=== PATIENT | female | born 1990 | race Caucasian/White ===

== ENCOUNTER → 2017-08-25 10:59 | Outpatient (CLI) | payer MEDICAID, SELFPAY ==
[2017-08-25 15:17] LABS: Absolute Lymphocyte Count 2.88 X10^3/ul (0.83-4.51); Basophil# 0.04 X10^3/uL; Basophil% 0.4 % (0-1); Eosinophil# 0.19 X10^3/uL; Eosinophils% 2.1 % (0-5); Hematocrit 39.7 % (37-47); Hemoglobin 13.4 g/dl (12.0-15.0); Lymphocyte # 2.88 X10^3/ul (4.0); Lymphocyte % 32.4 % (19-41); Mean Corp Hgb Conc 33.8 g/gl (32-36); Mean Corpuscular Hgb 31.6 pg (27.0-32.0); Mean Corpuscular Volume 93.6 fL (81-99); Mean Platelet Vol. 9.9 fl (6.2-12.0); Monocyte# 0.75 X10^3/uL; Monocyte% 8.4 % (0-10); Neutrophil # 5.02 X10^3/uL (2.7-7.7); Neutrophil % 56.6 % (47-70); Platelet Count 273 K/mm3 (150-450); RBC Distribution Width CV 12.6 % (11.6-14.6); Red Blood Count 4.24 M/mm3 (4.2-5.4); White Blood Count 8.9 K/mm3 (4.4-11.0)
[2017-08-25 15:19] LABS: POSITIVE COUNT NO; POSITIVE DIFFERENTIAL NO; POSITIVE MORPHOLOGY NO
[2017-08-25 15:27] LABS: Color, Urine Yellow (Yellow); Glucose, Dipstick Normal (Normal); Ketone-Dipstick Negative (Negative); Leukocyte Esterase-Dipstick Negative /ul (Negative); Nitrite-Dipstick Negative (Negative); Occult Blood-Urine Negative /ul (Negative); Protein-Dipstick Negative (Negative); Urine Bilirubin Dipstick Negative (Negative); Urine Clarity Sl. Cloudy (Clear); Urine Urobilinogen Normal (Normal)
[2017-08-25 15:34] LABS: Amphetamine Urine VISTA NEGATIVE (<1000 ng/mL); Barbiturate Urine VISTA NEGATIVE (< 200 ng/mL); Benzodiazepine Urine VISTA NEGATIVE (< 200 ng/mL); Cocaine Urine VISTA NEGATIVE (< 300 ng/mL); Ecstacy Urine VISTA NEGATIVE (< 500 ng/mL); Methadone Urine VISTA NEGATIVE (< 300 ng/mL); PCP Urine VISTA NEGATIVE (< 25 ng/mL); THC Urine VISTA NEGATIVE (< 50 ng/mL); Vista UDS pH Range 6
[2017-08-25 15:37] LABS: Thyroid Stim Hormone (TSH) 0.53 uIU/mL (0.358-3.74)
[2017-08-25 16:09] LABS: COTININE Drug Screen Negative (<200 ng/mL)
[2017-08-26 09:38] LABS: HIV - WCH Non-Reactive (Nonreactive); Rubella IgG 279.4 IU/mL
[2017-08-28 03:48] LABS: Prenatal RPR NONREACTIVE (NONREACTIVE)
[2017-08-28 07:19] LABS: HEPATITIS B SURFACE AG Negative (Negative); Hep C Antibodies 0.1 s/co ratio (0.0-0.9); V-Zoster IgG (Immunity) 1202 index (Immune >165)
== END ==
PROVIDERS: Visit Provider Obstetrics & Gynecology
DX: Z34.81 Encounter for supervision of other normal pregnancy, first trimester (principal)
CPT/HCPCS: 36415; 80307; 81002; 84443; 85025; 86703; 86762; 86787; 86803; 87340

== ENCOUNTER → 2018-01-14 10:59 | Outpatient (CLI) | payer MEDICAID, SELFPAY ==
[2018-01-14 12:21] LABS: Hematocrit 34.6 % (37-47); Hemoglobin 11.5 g/dl (12.0-15.0); Mean Corp Hgb Conc 33.2 g/gl (32-36); Mean Corpuscular Hgb 31.3 pg (27.0-32.0); Mean Platelet Vol. 10.4 fl (6.2-12.0); Platelet Count 201 K/mm3 (150-450); RBC Distribution Width CV 13.3 % (11.6-14.6); RBC Distribution Width SD 45.8 fl (35.1-43.9); Red Blood Count 3.68 M/mm3 (4.2-5.4)
[2018-01-14 12:23] LABS: Scan Indicated on CBC? Y/N NO
[2018-01-14 12:37] LABS: Glucose Challenge Gest 1H 50g 106 mg/dL (70-140)
== END ==
PROVIDERS: Visit Provider Obstetrics & Gynecology
DX: Z34.83 Encounter for supervision of other normal pregnancy, third trimester (principal)
CPT/HCPCS: 36415; 82950; 85027

== ENCOUNTER → 2018-03-11 15:34 | Outpatient (CLI) | payer MEDICAID, SELFPAY ==
[2018-03-11 17:34] LABS: Group B Strep DNA By PCR Negative (Negative); Internal Control PASS; Probe Check PASS; Specimen Processing Control PASS
== END ==
PROVIDERS: Visit Provider Obstetrics & Gynecology
DX: Z36.85 Encounter for antenatal screening for Streptococcus B (principal)
CPT/HCPCS: 87081; 87653

== ENCOUNTER 2018-03-31 06:50 | Inpatient (IN) | payer MEDICAID, SELFPAY ==
[2018-03-31 07:32] VITALS: BMI 30.4
[2018-03-31] MEDS: Lactated Ringers 1,000 ML 50 ML IV ×3 (07:58→15:30)
[2018-03-31] MEDS: Oxytocin 30 units/NS 500 ml 30 UNITS/500 ML IV.SOLN IV (08:03)
[2018-03-31 08:04] LABS: Hematocrit 34.4 % (37-47); Hemoglobin 11.4 g/dl (12.0-15.0); Mean Corp Hgb Conc 33.1 g/gl (32-36); Mean Corpuscular Hgb 30.2 pg (27.0-32.0); Mean Corpuscular Volume 91.2 fL (81-99); Mean Platelet Vol. 11.5 fl (6.2-12.0); Platelet Count 169 K/mm3 (150-450); RBC Distribution Width CV 13.6 % (11.6-14.6); RBC Distribution Width SD 44.5 fl (35.1-43.9); Red Blood Count 3.77 M/mm3 (4.2-5.4); Scan Indicated on CBC? Y/N NO
--- NOTE | 2018-03-31 09:30 | PCM.PN.OB ---
Subjective: Feeling some pressure. Objective: AFeb VSS. FHR tracing Cat 1 - Physical Exam General: Alert, Oriented x3, Cooperative, No apparent distress Lungs: Clear to auscultation, Normal air movement Cardiovascular: Regular rate, Regular Rhythm Abdomen: Non Tender, Gravid, Appropriate for Gestational Age Extremities: No edema, No Calf Tenderness Skin: No rashes Neurological: Neuro grossly intact Psych/Mental Status: Normal Affect Comment: CE /-2 Weight: 177 lb 11.081 oz Body Mass Index (BMI) 30.4 Intake and Output for Last 24 Hours 03/29/18 03/30/18 03/31/18 23:59 23:59 23:59 Output Total 550 / 550 Balance -550 / -550 Laboratory Tests Past 24 Hrs 03/31/18 03/31/18 07:40 07:40 WBC 9.0 RBC 3.77 L Hgb 11.4 L Hct 34.4 L MCV 91.2 MCH 30.2 MCHC 33.1 RDW 13.6 RDW Differential 44.5 H Plt Count 169 MPV 11.5 Blood Type Pending Antibody Screen Pending Medical Necessity - Tobacco Use Smoking Status: Former smoker Assessment/Plan AROM performed with clear fluid noted
[2018-03-31] MEDS: fentaNYL-bupivacaine (epidural) 100 ML BAG EPIDURAL ×2 (11:32→15:46)
--- NOTE | 2018-03-31 15:54 | NURSING ---
1540: Call to Dr Kimball. Message taken by nurse that pt SVE is 8/100/-2, and is comfortable with epidural.
--- NOTE | 2018-03-31 17:25 | PCM.PN.OB ---
Subjective: Comfortable with epidural with some pressure. Objective: AFeb VSS. FHR tracing Cat 1. - Physical Exam General: Alert, Oriented x3, Cooperative, No apparent distress Abdomen: Soft, Non Tender, Non-Distended, Gravid, Appropriate for Gestational Age Extremities: No edema Skin: No rashes Neurological: Neuro grossly intact Psych/Mental Status: Normal Affect Comment: FD +1 station Weight: 177 lb 11.081 oz Body Mass Index (BMI) 30.4 Intake and Output for Last 24 Hours 03/29/18 03/30/18 03/31/18 23:59 23:59 23:59 Intake Total 3020 / 3020 Output Total 1250 / 1250 Balance 1770 / 1770 Laboratory Tests Past 24 Hrs 03/31/18 03/31/18 07:40 07:40 WBC 9.0 RBC 3.77 L Hgb 11.4 L Hct 34.4 L MCV 91.2 MCH 30.2 MCHC 33.1 RDW 13.6 RDW Differential 44.5 H Plt Count 169 MPV 11.5 Blood Type O POSITIVE Antibody Screen NEGATIVE Medical Necessity - Tobacco Use Smoking Status: Former smoker Assessment/Plan Has progressed in labor. Now ready to start pushing efforts. Expect .
--- NOTE | 2018-03-31 17:33 | DCINST_ITS ---
Discharge Diet: No Restrictions Discharge Activity: Return to Normal Activity, May Drive, May Shower Return to work on:: 05/31/18 May shower in (days): 0 May resume sexual activity in: 4-6 weeks Call your doctor if your incision/area has: Sudden Increased Bleeding, Increased Pain/ Swelling, Foul Smelling Discharge Call your doctor if you observe: Fever of 101 or Higher, Inability to urinate, Inability to have a bowel movement, Using more than one pad per hour, Shortness of breath, Chest pain, Calf discomfort, Uncontrolled pain Cleanse incision/area with: Soap & Water Additional Instructions: If you experience any of the following, contact your healthcare provider. * Bleeding that soaks a pad every hour for 2 hours * Fever 100.4 or higher * Unrelieved incision or abdominal pain * Swelling, redness, discharge or bleeding from your incision or episiotomy site * Your incision begins to separate * Problems urinating (including inability to urinate or burning while urinating) . * Visual changes * Severe headache * Flu-like symptoms * Pain or redness in one of both of your breasts * Pain, warmth, tenderness or swelling in your legs, especially the calf area * Frequent nausea and vomiting * Symptoms of depression or anxiety If you experience any of the following, call 911 or go to the nearest Emergency Room. * Chest pain * Problems breathing * Seizure activity * Partial or complete paralysis of a body part, slurred speech, weakness or drooping of the face, or a sudden inability to walk or hold your balance Allergies/Adverse Reactions: Allergies amoxicillin [Amoxicillin] Allergy (Verified 08/09/13 02:46) Unknown amoxicillin trihydrate [From Trimox] Allergy (Verified 08/09/13 02:46) Rash azithromycin [From Zithromax] Allergy (Verified 08/09/13 02:46) Unknown erythromycin base [Erythromycin Base] Allergy (Verified 08/09/13 02:46) Unknown lactose Allergy (Verified 08/09/13 02:46) Abd cramps/diarrhea metronidazole Allergy (Verified 08/09/13 02:46) Other Penicillins [PCN] Allergy (Verified 08/09/13 02:46) Vomiting Sulfa (Sulfonamide Antibiotics) Allergy (Verified 08/09/13 02:46) Vomiting vancomycin Allergy (Verified 08/10/13 19:32) Hives Medications to take at Discharge Ibuprofen 600 mg PO 4X/DAY #30 tab 03/31/18 Pantoprazole Sodium [Protonix] 40 mg PO DAILY 03/31/18 Vits [Prenatabs FA ] 1 tablet PO DAILY 03/31/18 The following prescriptions were given: Ibuprofen 600 mg PO 4X/DAY #30 tab Please Follow Up With: Saurabh Kimball MD When: 6 weeks Primary Care Physician: Samara Ring, RN [Primary Care Provider] - Test Results: Test results from this visit will be discussed in further detail at your follow- up appointment, if applicable. Proposed Discharge Date: 04/02/18
[2018-03-31] MEDS: Ondansetron 4 MG/2 ML Vial IV (18:07)
[2018-03-31] MEDS: Oxytocin 30 units/NS 500 ml 30 UNITS/500 ML IV.SOLN 334 UNITS IV (18:49)
--- NOTE | 2018-03-31 19:02 | PCM.OB.VAG ---
Vaginal Delivery Maternal Presentation: Spontaneous Rupture of Membranes 39 weeks EGA admitted for elective induction of labor Method of Induction: Pitocin Amniotic Membrane Rupture Type: Artificial Rupture of Membrane time: 929 Amniotic Fluid Description: Clear Final JESUS: 04/07/18 Final JESUS Source: US <20 weeks Gestational age: 39 Weeks and 0 Days Date of Procedure: 03/31/18 Pre-Operative Diagnosis: Labor Post-Operative Diagnosis: same Surgery/ Procedure Performed: Vacuum Assisted Vaginal Delivery Anesthesiologist: Aden Haney Type of Anesthesia: Epidural Description of Procedure: Sarah progressed to FD then pushed for about an hour with little descent below +2 station. Noted to have a narrow pubic arch. Decision made to assist with a Kiwi vacuum device. The device was placed with care to avoid the fontanelles. Using steady downward traction the head was delivered under the pubic bone then the device was removed. She then pushed during the next contraction to deliver a live male with apgars of 8/9. Delayed cord clamping was employed. Cord blood was collected for blood typing. The placenta delivered spontaneously intact with a centrally located 3VC. The uterus contracted well. The cervix and upper vagina were intact. A small posterior vaginal first degree tear was repaired with 2-0 vicryl. A left first degree labial tear was repaired with 3-0 vicryl. Presentation: Vertex Placental Delivery Description: Spontaneous Placenta Disposition: [facility] Percentage of Placenta Abruption: 0 Cord Vessel Description: 3 Vessels Nuchal Cord Compression: Without compression Cord Entanglement: None Drain: Zhou to straight drain Estimated Blood Loss: 300cc A gender: Male (1 minute): 8 (5 minute): 9 Episiotomy Description: None Laceration: Midline, Vaginal Extension/lac, 1st degree Medications given after delivery: IV Pitocin Complications: None
[2018-03-31] MEDS: Oxytocin 30 units/NS 500 ml 30 UNITS/500 ML IV.SOLN 167 UNITS IV (20:16)
--- NOTE | 2018-03-31 22:51 | NURSING ---
epidural catheter removed and blue tip intact
[2018-03-31] MEDS: Ibuprofen 600 MG Tablet PO (23:46)
[2018-04-01] VITALS (7 sets, daily range): BP systolic 110–129; BP diastolic 64–84; PULSE 72–94; RESP 16–20; TEMP 36.2–36.8; O2SAT 97
[2018-04-01 06:01] LABS: Hematocrit 33.3 % (37-47); Hemoglobin 11.2 g/dl (12.0-15.0); Mean Corp Hgb Conc 33.6 g/gl (32-36); Mean Corpuscular Hgb 30.9 pg (27.0-32.0); Mean Platelet Vol. 11.9 fl (6.2-12.0); Platelet Count 179 K/mm3 (150-450); RBC Distribution Width CV 13.4 % (11.6-14.6); RBC Distribution Width SD 43.6 fl (35.1-43.9); Red Blood Count 3.62 M/mm3 (4.2-5.4); White Blood Count 14.3 K/mm3 (4.4-11.0)
[2018-04-01 06:05] LABS: Scan Indicated on CBC? Y/N NO
[2018-04-01] MEDS: Ibuprofen 600 MG Tablet PO ×3 (07:48→23:23)
--- NOTE | 2018-04-01 07:48 | PCM.PN.OB ---
Subjective: Some cramping with breast feeding. Bleeding light. Objective: AFeb VSS Hgb stable - Physical Exam General: Alert, Oriented x3, Cooperative, No apparent distress Lungs: Clear to auscultation, Normal air movement Cardiovascular: Regular rate, Regular Rhythm Abdomen: Soft, Non Tender, Non-Distended, - - Fundus firm nontender Extremities: No edema, No Calf Tenderness Skin: No rashes Neurological: Neuro grossly intact Psych/Mental Status: Normal Affect Comment: Lochia light Vital Signs Temp Pulse Resp BP 97.7 F L 74 20 H 121/83 H 04/01/18 07:32 04/01/18 07:37 04/01/18 07:32 04/01/18 07:32 Weight: 177 lb 11.081 oz Body Mass Index (BMI) 30.4 Intake and Output for Last 24 Hours 03/30/18 03/31/18 04/01/18 23:59 23:59 23:59 Intake Total 3020 / 3020 Output Total 2650 / 2650 1000 / 1000 Balance 370 / 370 -1000 / -1000 Laboratory Tests Past 24 Hrs 03/31/18 03/31/18 04/01/18 07:40 07:40 05:30 WBC 9.0 14.3 H RBC 3.77 L 3.62 L Hgb 11.4 L 11.2 L Hct 34.4 L 33.3 L MCV 91.2 92.0 MCH 30.2 30.9 MCHC 33.1 33.6 RDW 13.6 13.4 RDW Differential 44.5 H 43.6 Plt Count 169 179 MPV 11.5 11.9 Blood Type O POSITIVE Antibody Screen NEGATIVE Medical Necessity - Tobacco Use Smoking Status: Former smoker Assessment/Plan Doing well on PP day#2. Continue routine PP care.
--- NOTE | 2018-04-01 07:50 | PCM.DC.SUM ---
Discharge Date and Diagnosis Date of Admission: 03/31/18 Date of Discharge: 04/02/18 - Primary Discharge Diagnosis S/P Vacuum Assisted vaginal delivery Hospital Course and Treatment Consultations 03/31/18 06:58 Consult: Anesthesia Routine Comment: Reason For Exam: ROUTINE Operations: None Procedures: - - Pitocin induction of labor, epidural, vacuum assisted vaginal delivery Summary of Care Provided: The patient is a 28 year old F [admitted for elective induction of labor at 39 weeks. Pitocin induction resulted in vacuum assisted vaginal delivery without complication. Post course unremarkable. Discharged home on PP day#2.] Discharge Diet: No Restrictions Discharge Activity: Return to Normal Activity, May Drive, May Shower Return to work on:: 05/31/18 May shower in (days): 0 May resume sexual activity in: 4-6 weeks Call your doctor if your incision/area has: Sudden Increased Bleeding, Increased Pain/ Swelling, Foul Smelling Discharge Call your doctor if you observe: Fever of 101 or Higher, Inability to urinate, Inability to have a bowel movement, Using more than one pad per hour, Shortness of breath, Chest pain, Calf discomfort, Uncontrolled pain Cleanse incision/area with: Soap & Water Home Medications: Medications to take at Discharge Ibuprofen 600 mg PO 4X/DAY #30 tab 03/31/18 Pantoprazole Sodium [Protonix] 40 mg PO DAILY 03/31/18 Vits [Prenatabs FA ] 1 tablet PO DAILY 03/31/18 Following Prescrptions Were Given to Patient: Ibuprofen 600 mg PO 4X/DAY #30 tab Primary Care Physician: Samara Ring RN [Primary Care Provider] - Please Follow Up With: Saurabh Kimball MD When: 6 weeks Disposition: Home Minutes spent on discharge:: 15 Patient Condition:: Good Medical Necessity - Tobacco Use Smoking Status: Former smoker Meaningful Use Info Meaningful Use Diagnoses (Choose all that apply): None applicable
--- NOTE | 2018-04-01 07:55 | NURSING ---
did tyhe assessment with the student and helped her document. agree with the documented assessment
--- NOTE | 2018-04-01 08:43 | NURSING ---
gave report to ivette
[2018-04-01] MEDS: Pantoprazole Sodium 40 MG Tablet PO (09:40)
[2018-04-01] MEDS: Prenatal Vits Tablet 1 TABLET PO (09:40)
--- NOTE | 2018-04-01 10:07 | NURSING ---
report given to Sabrina
[2018-04-01] MEDS: Acetaminophen 500 MG Tablet 1000 MG PO (11:14)
--- NOTE | 2018-04-01 13:05 | NURSING ---
report given to ivette
[2018-04-01] MEDS: Dibucaine 30 GM Tube 1 APPLIC TOPICAL (13:14)
[2018-04-01] MEDS: oxyCODONE 5 MG Tablet PO (18:08)
[2018-04-02 01:00] VITALS: BP 126/71; PULSE 77; RESP 16; TEMP 36.3; O2SAT 98
[2018-04-02] MEDS: oxyCODONE 5 MG Tablet PO ×2 (01:15→08:35)
--- NOTE | 2018-04-02 08:10 | PCM.PROGNOTE ---
Subjective: PPD#2 Vacuum assisted vaginal delivery Nursing, milk not quite in. States baby up all night cluster feeding. C/O severe pain at perineum 2/2 stitches (first degree) Used cream but not helpful Will offer Dermoplast if available at this hospital, otherwise mother to go to [facility] to pick this up. Baby appt needed, so stayed last night 2/2 no f/u appt with peds yet. States poor sleep . States needing Oxycodone for her perineum. Objective: Sitting up in bed, holding and nursing baby. - Physical Exam General: Alert, Oriented x3, Cooperative, No apparent distress HEENT: Atraumatic Neck: Supple Neurological: Cranial nerves II-XII grossly intact Psych/Mental Status: Normal Affect Vital Signs Temp Pulse Resp BP Pulse Ox 97.4 F L 77 16 126/71 H 98 04/02/18 01:00 04/02/18 01:00 04/02/18 01:00 04/02/18 01:00 04/02/18 01:00 Oxygen Delivery Method Room Air Weight: 80.6 kg Body Mass Index (BMI) 30.4 Intake and Output for Last 24 Hours 03/31/18 04/01/18 04/02/18 23:59 23:59 23:59 Intake Total 3020 / 3020 Output Total 2650 / 2650 1000 / 1000 Balance 370 / 370 -1000 / -1000 Medical Necessity - Tobacco Use Smoking Status: Former smoker Assessment/Plan PPD#2 Vacuum assisted vaginal delivery Stable pp . Dischg home. Peds appt to be made today prior to dischg. RTO to see Dr. Kimball in 6 wk for pp check, prn sooner.
[2018-04-02] MEDS: Prenatal Vits Tablet 1 TABLET PO (08:34)
[2018-04-02 08:35] VITALS: BP 128/78; PULSE 76; RESP 16; TEMP 36.2
[2018-04-02] MEDS: Senna/Docusate Sodium 1 Tablet PO (08:35)
[2018-04-02] MEDS: Pantoprazole Sodium 40 MG Tablet PO (08:35)
[2018-04-02] MEDS: Naproxen 250 MG Tablet PO (13:03)
[2018-04-02 13:50] VITALS: BP 123/70; PULSE 84; RESP 16; TEMP 36.6
== END 2018-04-02 13:50 | disposition home or self-care (01) | DRG 373 ==
PROVIDERS: Admitting Provider Obstetrics & Gynecology; Visit Provider Obstetrics & Gynecology
DX: O34.83 Maternal care for other abnormalities of pelvic organs, third trimester (principal); O70.0 First degree perineal laceration during delivery; O26.23 Pregnancy care for patient with recurrent pregnancy loss, third trimester; O99.89 Other specified diseases and conditions complicating pregnancy, childbirth and the puerperium; Q76.0 Spina bifida occulta; Z87.891 Personal history of nicotine dependence; Z3A.39 39 weeks gestation of pregnancy; Z37.0 Single live birth
CPT/HCPCS: 59025; 59050; 85027; 86850; 86900; 99218; J7120; G0378; J2405

== ENCOUNTER → 2018-09-14 13:24 | Outpatient (CLI) | payer MEDICAID, SELFPAY ==
[2018-09-15 17:16] LABS: HPV Reflexed? NOT INDICATED
== END ==
PROVIDERS: Visit Provider Obstetrics & Gynecology
DX: Z12.4 Encounter for screening for malignant neoplasm of cervix (principal)
CPT/HCPCS: 88175; G0145

== ENCOUNTER → 2019-03-28 12:05 | Outpatient (CLI) | payer BC, MEDICAID, SELFPAY ==
[2019-03-28 13:18] LABS: Progesterone Level 16.95 ng/mL (See Comment)
[2019-03-28 13:50] LABS: hCG Titer Quant., Serum 1577 mIU/mL (1-3)
== END ==
PROVIDERS: Visit Provider Obstetrics & Gynecology
DX: N91.2 Amenorrhea, unspecified (principal)
CPT/HCPCS: 36415; 84144; 84702

== ENCOUNTER → 2019-04-19 15:32 | Outpatient (CLI) | payer BC, MEDICAID, SELFPAY ==
[2019-04-19 19:57] LABS: Chlamydia Trachomatis by PCR Negative (Negative); Neisserai gonorrhoeae by PCR Negative (Negative); Probe Check PASS; Sample Adequacy Control PASS; Specimen Processing Control PASS
== END ==
PROVIDERS: Visit Provider Obstetrics & Gynecology
DX: Z34.81 Encounter for supervision of other normal pregnancy, first trimester (principal)
CPT/HCPCS: 87491; 87591

== ENCOUNTER → 2019-05-18 10:35 | Outpatient (CLI) | payer BC, MEDICAID, SELFPAY ==
[2019-05-18 14:18] LABS: Absolute Lymphocyte Count 2.36 X10^3/uL (0.83-4.51); Absolute Neutrophil Count 5.8 X10^3/uL (2.0-7.7); Basophil# 0.04 X10^3/uL; Basophil% 0.4 % (0-1); Eosinophil# 0.28 X10^3/uL; Eosinophils% 3.1 % (0-5); Hematocrit 38.8 % (37-47); Hemoglobin 13.3 g/dL (12.0-15.0); Lymphocyte # 2.36 X10^3/ul (4.0); Lymphocyte % 25.8 % (19-41); Mean Corp Hgb Conc 34.3 g/dL (32-36); Mean Corpuscular Hgb 31.2 pg (27.0-32.0); Mean Corpuscular Volume 91.1 fL (81-99); Mean Platelet Vol. 9.7 fl (6.2-12.0); Monocyte# 0.68 X10^3/uL; Monocyte% 7.4 % (0-10); NRBC Flagged by Analyzer 0 % (0-5); Neutrophil # 5.75 X10^3/uL (2.7-7.7); Neutrophil % 63.1 % (47-70); Platelet Count 299 K/mm3 (150-450); RBC Distribution Width SD 40.1 fl (35.1-43.9); Red Blood Count 4.26 M/mm3 (4.2-5.4); White Blood Count 9.1 K/mm3 (4.4-11.0)
[2019-05-18 14:20] LABS: Color, Urine Yellow (Yellow); Glucose, Dipstick Normal (Normal); Ketone-Dipstick Negative (Negative); Leukocyte Esterase-Dipstick Negative /ul (Negative); Nitrite-Dipstick Negative (Negative); Occult Blood-Urine Negative /ul (Negative); Protein-Dipstick Negative (Negative); Urine Bilirubin Dipstick Negative (Negative); Urine Clarity Sl. Cloudy (Clear); Urine Urobilinogen Normal (Normal); Urine pH 6.5 (5.0 - 8.0)
[2019-05-18 14:35] LABS: Thyroid Stim Hormone (TSH) 0.27 uIU/mL (0.358-3.74)
[2019-05-18 14:45] LABS: Amphetamine Urine VISTA NEGATIVE (<1000 ng/mL); Barbiturate Urine VISTA NEGATIVE (< 200 ng/mL); Benzodiazepine Urine VISTA NEGATIVE (< 200 ng/mL); Cocaine Urine VISTA NEGATIVE (< 300 ng/mL); Ecstacy Urine VISTA NEGATIVE (< 500 ng/mL); Methadone Urine VISTA NEGATIVE (< 300 ng/mL); PCP Urine VISTA NEGATIVE (< 25 ng/mL); THC Urine VISTA NEGATIVE (< 50 ng/mL); Vista UDS pH Range 6
[2019-05-19 03:07] LABS: Prenatal RPR NONREACTIVE (NONREACTIVE)
[2019-05-19 11:39] LABS: HIV - WCH Non-Reactive (Nonreactive); Hepatitis B Surface Antigen Non-Reactive (Nonreactive); Hepatitis C Antibody Non-Reactive (Nonreactive); Rubella IgG 297.7 IU/mL; Vitamin D,25 Hydroxy 21.7 ng/mL (29.95-100.01)
== END ==
PROVIDERS: Visit Provider Obstetrics & Gynecology
DX: Z34.81 Encounter for supervision of other normal pregnancy, first trimester (principal)
CPT/HCPCS: 36415; 80307; 81002; 82306; 84443; 85025; 86703; 86762; 86803; 87340

== ENCOUNTER → 2019-09-01 11:53 | Outpatient (CLI) | payer BC, MEDICAID, SELFPAY ==
[2019-09-01 12:36] LABS: Hematocrit 35.4 % (37-47); Hemoglobin 11.8 g/dL (12.0-15.0); Mean Corp Hgb Conc 33.3 g/dL (32-36); Mean Corpuscular Hgb 31.1 pg (27.0-32.0); Mean Corpuscular Volume 93.2 fL (81-99); Mean Platelet Vol. 10.1 fl (6.2-12.0); Platelet Count 228 K/mm3 (150-450); RBC Distribution Width SD 44.3 fl (35.1-43.9); White Blood Count 9.4 K/mm3 (4.4-11.0)
[2019-09-01 13:22] LABS: Free T3 2.3 pg/mL (2.18-3.98); Glucose Challenge Gest 1H 50g 95 mg/dL (70-140); T4 Free Direct 0.89 ng/dL (0.76-1.46); Vitamin D,25 Hydroxy 32.4 ng/mL (29.95-100.01)
== END ==
PROVIDERS: Visit Provider Obstetrics & Gynecology
DX: Z34.83 Encounter for supervision of other normal pregnancy, third trimester (principal)
CPT/HCPCS: 36415; 82306; 82950; 84439; 84443; 84481; 85027

== ENCOUNTER → 2019-11-01 | Outpatient (CLI) | payer BC, MEDICAID, SELFPAY | END | disposition home or self-care (01) | PROVIDERS: Referring Provider Obstetrics & Gynecology; Visit Provider Obstetrics & Gynecology | DX: Z36.85 Encounter for antenatal screening for Streptococcus B (principal) | CPT/HCPCS: 87081 ==

== ENCOUNTER 2019-11-20 15:16 | Inpatient (IN) | payer BC, MEDICAID, SELFPAY ==
[2019-11-20] VITALS (53 sets, daily range): BP systolic 121–140; BP diastolic 60–100; PULSE 76–109; TEMP 36–36.8; O2SAT 97–100; BMI 32.5
[2019-11-20] MEDS: Lactated Ringers 1,000 ML 200 ML IV ×2 (16:17→20:35)
[2019-11-20 16:20] LABS: Absolute Lymphocyte Count 2.64 X10^3/uL (0.83-4.51); Absolute Neutrophil Count 9.2 X10^3/uL (2.0-7.7); Basophil# 0.04 X10^3/uL; Basophil% 0.3 % (0-1); Eosinophils% 0.8 % (0-5); Hematocrit 35.3 % (37-47); Hemoglobin 11.6 g/dL (12.0-15.0); Lymphocyte # 2.64 X10^3/ul (4.0); Lymphocyte % 20.2 % (19-41); Mean Corp Hgb Conc 32.9 g/dL (32-36); Mean Corpuscular Hgb 29.7 pg (27.0-32.0); Mean Corpuscular Volume 90.5 fL (81-99); Mean Platelet Vol. 11.3 fl (6.2-12.0); Monocyte# 0.99 X10^3/uL; Monocyte% 7.6 % (0-10); NRBC Flagged by Analyzer 0 % (0-5); Neutrophil % 70.6 % (47-70); Platelet Count 183 K/mm3 (150-450); RBC Distribution Width CV 13.4 % (11.6-14.6); RBC Distribution Width SD 43.9 fl (35.1-43.9)
[2019-11-20] MEDS: Lactated Ringers 500 ML 999 ML IV (16:52)
--- NOTE | 2019-11-20 17:09 | PCM.HP.OB ---
- Problem List (1) 39 weeks gestation of Status: Acute History Date of Admission: 11/20/19 Final JESUS: 11/23/19 Final JESUS Source: US <20 weeks Gestational age: 39 Weeks and 4 Days History of this : This is a 29 year-old, G [6], P [2031], at 39 4/7 weeks gestational age with c/o contractions. Medical History: Medical History (Last Updated 11/20/19 @ 17:[address] Meenu Richardson MD) Family history of malignant hyperthermia Z84.89 Occult spina bifida Q76.0 Allergies amoxicillin [Amoxicillin] Allergy (Verified 08/09/13 02:46) Unknown amoxicillin trihydrate [From Trimox] Allergy (Verified 08/09/13 02:46) Rash azithromycin [From Zithromax] Allergy (Verified 08/09/13 02:46) Unknown erythromycin base [Erythromycin Base] Allergy (Verified 08/09/13 02:46) Unknown lactose Allergy (Verified 08/09/13 02:46) Abd cramps/diarrhea metronidazole Allergy (Verified 08/09/13 02:46) Other Penicillins [PCN] Allergy (Verified 08/09/13 02:46) Vomiting Sulfa (Sulfonamide Antibiotics) Allergy (Verified 08/09/13 02:46) Vomiting vancomycin Allergy (Verified 08/10/13 19:32) Hives Home Medications: Home Medications Pantoprazole Sodium [Protonix] 40 mg PO DAILY 03/31/18 Vits [Prenatabs FA ] 1 tablet PO DAILY 03/31/18 Cetirizine HCl [Zyrtec] 10 mg PO DAILY PRN 11/20/19 Smoking Status: Former smoker Alcohol: None Number of Fetus(es): 1 NST - FHR Rate Baby A Baseline: 135 Accelerations:: 15 x 15 Decelerations:: None NST Reactive:: Yes FHR Category:: Category I Uterine Activity:: 2-3/10 min History Past Pregnancies: Past Pregnancies Delivery Date Name GA/ Weeks Outcome Route Wt Sex Labor Length Anesthesia Delivery Location Provider FOB 07/2013 Jihan 38 Living [id number] F 36 Epidural [facility] 10/2015 [facility] 02/2017 [facility] 05/2017 [facility] 03/2018 Jose 39 Living VAVD [id number] M 12 Epidural [facility] Labs: Mom's Problem List Problem Status Onset Code 39 weeks gestation of Acute Z3A.39 Mom's Labs & Results 11/20/19 11/20/19 16:10 16:10 WBC 13.0 H RBC 3.90 L Hgb 11.6 L Hct 35.3 L MCV 90.5 MCH 29.7 MCHC 32.9 RDW Std Deviation 43.9 RDW Coeff of Kaitlynn 13.4 Plt Count 183 MPV 11.3 Immature Gran % (Auto) 0.500 Neut % (Auto) 70.6 H Lymph % (Auto) 20.2 Kern % (Auto) 7.6 Eos % (Auto) 0.8 Baso % (Auto) 0.3 Absolute Neuts (auto) 9.2 H Absolute Lymphs (auto) 2.64 Nucleated RBC % 0 Blood Type Pending Antibody Screen Pending Course Did the patient receive Yes care? Labs Blood Type: O RH: POSITIVE RPR/VDRL/Syphilis Nonreactive Rubella status Immune HbSAg Negative Date Done: 05/18/19 Chlamydia Negative Gonorrhea Negative HIV/AIDS Non-Reactive Group B Strep: Negative Current Obstetrical History Gestational Diabetes No Incompetent Cervix No Infertility No IUGR No Macrosomia No Hypertension/Pre-eclampsia No Placenta Previa/Abruption No PTL/PROM No Uterine anomaly No Oligohydramnios No Polyhydramnios No Multiple gestation No Past Medical History Asthma No Diabetes No Hypertension No Heart disease No Mitral valve prolapse No Neurologic/Seizure disorder/ No Migraines Kidney disease No Liver disease No Varicosities No Clotting disorders/Hx of DVT No Thyroid Dysfunction No Other medical diseases No Psychiatric disorders No Major trauma No Abnormal PAP smear Yes: 7 yrs ago hpv Sleep apnea No Mammogram in the last 2 years No Social History Marital Status: Alleged father Steven Hx Smoking No Smoking Status Former smoker, quit 2016 How long have you used no substances (years)? What date/time did you last no use any of the above? Expected Infant Delivery Method: Spontaneous Vaginal Number of Visits: 12 Review of Systems Constitutional: Denies: Chills, Fever, Fatigue Cardiovascular: Denies: Chest Pain Respiratory: Denies: Shortness of Breath Gastrointestinal: Denies: Abdominal Pain, Diarrhea, Nausea, Vomiting Gynecological: Denies: Vaginal bleeding Physical Exam Vitals: Vital Signs Temp Pulse BP Pulse Ox 98.2 F 94 124/73 H 99 11/20/19 16:51 11/20/19 17:00 11/20/19 16:51 11/20/19 17:00 General: Alert, Oriented x3, Cooperative, No apparent distress HEENT: Atraumatic, Normocephalic Cardiovascular: Regular rate, Regular Rhythm Lungs: Clear to auscultation, Normal air movement Abdomen: Soft, Non Tender, Non-Distended, Gravid Extremities:: No edema Neurological: Neuro grossly intact CRISIS INTERVENTION COUNSELOR: Normal external genitalia Estimated gestational size: Appropriate for gestational size Presentation: Cephalic Assessment/Plan All Active Problems (Last Updated 11/20/19 @ 17:[address] Meenu Richardson MD) 39 weeks gestation of (Acute) This is a 29 year-old, G [6], P [2031], at 39 4/7 weeks gestational age in labor, Cat I FHR -Epidural per patient request -Maternal and status reassuring. Essential Procedure Criteria Procedure Essential: Yes Criteria Note: On 10/04/2019 the [place] Department of Health ([facility]) Public Order signed by [facility] Director Brittani Gonzalez M.D., regarding the Management of Non-Essential Surgeries and Procedures for the purpose of preserving Personal Protective Equipment (PPE) and critical hospital capacity and resources within [place] went into effect as of 10/05/2019 at 5:00PM. According to the [facility] Public Order: This action will remain in full force and effect until the State of Emergency declared by the Governor no longer exists or the Director of the [facility] rescinds or modifies this Order.. This [facility] order stated all non-essential or elective surgeries and procedures that utilize PPE should be delayed unless there is undue risk to the current or future health of a patient. After reviewing the aforementioned [facility] Public Order and the patients clinical case, I have determined that the scheduled procedure meets the criteria to go forward. Risk to Patient if Procedure Delayed: Threat to patient's life if surgery or procedure is delayed
[2019-11-20] MEDS: fentaNYL-bupivacaine (epidural) 100 ML BAG EPIDURAL (17:46)
[2019-11-20] MEDS: Oxytocin 30 units/NS 500 ml 30 UNITS/500 ML IV.SOLN IV (20:36)
[2019-11-20] MEDS: Oxytocin 30 units/NS 500 ml 30 UNITS/500 ML IV.SOLN 334 UNITS IV (21:13)
--- NOTE | 2019-11-20 21:34 | PCM.OPRPT ---
Problem List (1) 39 weeks gestation of Status: Acute Vaginal Delivery Maternal Presentation: Active Labor Amniotomy and pitocin for augmentation Amniotic Membrane Rupture Type: Artificial Rupture of Membrane time: 11/20/19 1833h Amniotic Fluid Description: - - Blood tinged Final JESUS: 11/23/19 Final JESUS Source: US <20 weeks Gestational age: 39 Weeks and 4 Days Date of Procedure: 11/20/19 Pre-Operative Diagnosis: 39 4/7wga Post-Operative Diagnosis: 39 4/7wga Surgery/ Procedure Performed: Spontaneous Vaginal Delivery Anesthesiologist: Palak Harris Type of Anesthesia: Epidural Description of Procedure: Patient was FD/+1 station on my arrival and OA. She pushed to deliver a male infant over an intact perineum. The was placed on the maternal abdomen and further attended by nursery personnel. The cord was doubly cut and clamped at 3 minutes of life. Cord blood specimen was obtained. The placenta delivered spontaneously and appeared intact on inspection. Sponge counts correct x 2 Presentation: Vertex Placental Delivery Description: Spontaneous Placenta Disposition: [facility] Cord Vessel Description: 3 Vessels Cord Entanglement: None Drain: Zhou to straight drain Estimated Blood Loss: 150 ml Infant A gender: Male (1 minute): 9 (5 minute): 9 Episiotomy Description: None Laceration: None Medications given after delivery: IV Pitocin Complications: None
[2019-11-20] MEDS: 0.9% Saline Lock 10 ML Syringe IV (23:49)
[2019-11-21] VITALS (9 sets, daily range): BP systolic 121–134; BP diastolic 66–77; PULSE 84–99; RESP 16; TEMP 36.2–37.2; O2SAT 97
[2019-11-21] MEDS: Acetaminophen 325 MG Tablet PO ×2 (07:19→16:25)
--- NOTE | 2019-11-21 08:19 | PN.OBGYN_ITS ---
Patient Problems: Active and Suspected Problems (Last Updated 11/20/19 @ 17:[address] Meenu Richardson MD) 39 weeks gestation of (Acute) Subjective: No issues overnight. Denies heavy lochia. Has cramping, but it is tolerable. Infant nursing well. Objective: AVSS - Physical Exam Vitals/I&O's: Vital Signs Temp Pulse Resp BP Pulse Ox 97.5 F L 89 16 122/66 H 98 11/21/19 07:22 11/21/19 07:22 11/21/19 07:22 11/21/19 07:22 11/20/19 22:19 Oxygen Delivery Method Room Air Weight: 86 kg Body Mass Index (BMI) 32.5 Intake and Output for Last 24 Hours 11/19/19 11/20/19 11/21/19 23:59 23:59 23:59 Intake Total 2494.46 / 2494.46 Output Total 500 / 500 850 / 850 Balance 1993.46 / 1993.46 -850 / -850 General: Alert, Oriented x3, Cooperative, No apparent distress HEENT: Atraumatic, Normocephalic Lungs: Clear to auscultation, Normal air movement Cardiovascular: Regular rate, Regular Rhythm, Normal S1, Normal S2 Abdomen: Soft, Non Tender, Non-Distended, - - Fundus firm and nontender Extremities: No edema, No Calf Tenderness Neurological: Neuro grossly intact Psych/Mental Status: Normal Affect, Appropriate, Alert and oriented to time, place, person, mood and affect Laboratory Results 11/20/19 16:10: WBC 13.0 H, RBC 3.90 L, Hgb 11.6 L, Hct 35.3 L, MCV 90.5, MCH 29.7, MCHC 32.9, RDW Std Deviation 43.9, RDW Coeff of Kaitlynn 13.4, Plt Count 183, MPV 11.3, Immature Gran % (Auto) 0.500, Neut % (Auto) 70.6 H, Lymph % (Auto) 20.2, Pepin % (Auto) 7.6, Eos % (Auto) 0.8, Baso % (Auto) 0.3, Absolute Neuts (auto) 9.2 H, Absolute Lymphs (auto) 2.64, Nucleated RBC % 0 11/20/19 16:10: Blood Type O POSITIVE, Antibody Screen NEGATIVE Current Medications Acetaminophen (Tylenol) 325 - 650 mg PO Q4H PRN PRN PRN Reason: Pain Score 1-3/10 Last Admin: 11/21/19 07:19 Dose: 650 mg Documented by: Bisacodyl (Dulcolax) 10 mg RECTAL UD PRN PRN Reason: If no BM Dibucaine (Dibucaine) 1 applic TOPICAL TID PRN PRN; Protocol PRN Reason: Discomfort Hydrocortisone (Hytone) 1 applic TOPICAL TID PRN PRN; Protocol PRN Reason: Discomfort Ibuprofen (Motrin) 600 mg PO Q6H PRN PRN PRN Reason: Pain Score 1-3/10 Loratadine (Claritin) 10 mg PO DAILY PRN PRN Reason: ALLERGIES Methylergonovine Maleate (Methergine) 0.2 mg IM X1 PRN PRN Reason: Excess bleeding/uterine atony Ondansetron HCl (Zofran) 4 mg IV Q4H PRN PRN PRN Reason: NAUSEA Multivit/Folic Acid/Iron (Prenatabs Fa) 1 tablet PO DAILY CRIS Senna/Docusate Sodium (Senokot-S, Magalie-Colace) 1 - 2 tablet PO DAILY PRN PRN PRN Reason: Constipation Simethicone (Mylicon) 80 mg PO PCHS PRN PRN Reason: Indigestion/Stomach pain Sodium Chloride () 5 - 15 ml IV UD PRN PRN Reason: SALINE FLUSH Last Admin: 11/20/19 23:49 Dose: 10 ml Documented by: Medical Necessity - Tobacco Use Smoking Status: Former smoker Assessment/Plan All Active Problems (Last Updated 11/20/19 @ 17:[address] Meenu Richardson MD) 39 weeks gestation of (Acute) This is a 29 year-old, G [6], P [5831 PPD#1 s/p -O positive - -Routine care -Consider d/c home at 24h
--- NOTE | 2019-11-21 08:24 | DCINST_ITS ---
Discharge Diet: No Restrictions Discharge Activity: Return to Normal Activity May resume sexual activity in: 4-6 weeks Additional Instructions: If you experience any of the following, contact your healthcare provider. * Bleeding that soaks a pad every hour for 2 hours * Fever 100.4 or higher * Unrelieved incision or abdominal pain * Swelling, redness, discharge or bleeding from your incision or episiotomy site * Your incision begins to separate * Problems urinating (including inability to urinate or burning while urinating). * Visual changes * Severe headache * Flu-like symptoms * Pain or redness in one of both of your breasts * Pain, warmth, tenderness or swelling in your legs, especially the calf area * Frequent nausea and vomiting * Symptoms of depression or anxiety If you experience any of the following, call 911 or go to the nearest Emergency Room. * Chest pain * Problems breathing * Seizure activity * Partial or complete paralysis of a body part, slurred speech, weakness or drooping of the face, or a sudden inability to walk or hold your balance Allergies/Adverse Reactions: Allergies amoxicillin [Amoxicillin] Allergy (Verified 08/09/13 02:46) Unknown amoxicillin trihydrate [From Trimox] Allergy (Verified 08/09/13 02:46) Rash azithromycin [From Zithromax] Allergy (Verified 08/09/13 02:46) Unknown erythromycin base [Erythromycin Base] Allergy (Verified 08/09/13 02:46) Unknown lactose Allergy (Verified 08/09/13 02:46) Abd cramps/diarrhea metronidazole Allergy (Verified 08/09/13 02:46) Other Penicillins [PCN] Allergy (Verified 08/09/13 02:46) Vomiting Sulfa (Sulfonamide Antibiotics) Allergy (Verified 08/09/13 02:46) Vomiting vancomycin Allergy (Verified 08/10/13 19:32) Hives Medications to take at Discharge Pantoprazole Sodium [Protonix] 40 mg PO DAILY 03/31/18 Vits [Prenatabs FA ] 1 tablet PO DAILY 03/31/18 Cetirizine HCl [Zyrtec] 10 mg PO DAILY PRN 11/20/19 Please Follow Up With: Meenu Richardson MD - Mood follow up When: 2-3 weeks Please Follow Up With: Meenu Richardson MD When: 6 weeks Test Results: Test results from this visit will be discussed in further detail at your follow- up appointment, if applicable.
[2019-11-21] MEDS: Prenatal Vits Tablet 1 TABLET PO (10:38)
[2019-11-21] MEDS: Ibuprofen 600 MG Tablet PO (19:14)
[2019-11-21] MEDS: Senna/Docusate Sodium 1 Tablet PO (21:33)
== END 2019-11-21 22:43 | disposition home or self-care (01) | DRG 807 ==
LOC: WPOUT 15:36 → WP 15:41
PROVIDERS: Admitting Provider Obstetrics & Gynecology; Visit Provider Obstetrics & Gynecology
DX: O80 Encounter for full-term uncomplicated delivery (principal); Q76.0 Spina bifida occulta; Z79.899 Other long term (current) drug therapy; Z87.891 Personal history of nicotine dependence; Z3A.39 39 weeks gestation of pregnancy; Z37.0 Single live birth
CPT/HCPCS: 59025; 59050; 85025; 86850; 86900; 86901; 99218; J7120; A4216; G0378